=== PATIENT | female | born 1950 | race Caucasian/White ===

== ENCOUNTER 2020-03-01 22:03 | Emergency (ER) | payer MEDICARE, SELFPAY ==
[2020-03-01 22:02] VITALS: BP 186/90; PULSE 145; RESP 24; TEMP 37.2; O2SAT 97; BMI 23.9
--- NOTE | 2020-03-01 22:10 | ECG_ITS ---
APPROVED REPORT Exam: Resting ECG HR:140 bpm ECG Measurements Heart Rate 140 AXES QRSd 76 QRS -59 QT 298 T 89 QTc 454 <Conclusion> Atrial fibrillation with rapid ventricular response Left anterior fascicular block Abnormal ECG Electronically signed by : Anshul Govea, 03/02/2020 15:00:13
[2020-03-01 22:19] LABS: Basophils # 0.1 K/mm3 (0-0.2); Basophils % 0.9 % (0.1-2.0); Eosinophils # 0.2 K/mm3 (0.0-0.4); Eosinophils % 1.6 % (0.1-12.0); Hematocrit 33.7 % (37.0-47.0); Hemoglobin 11.7 g/dL (12.2-16.2); Lymphocytes # 1.8 K/mm3 (0.7-4.5); Lymphocytes % 17.2 % (10-50); Mean Corpuscular HGB Conc 34.7 g/dL (31.8-35.4); Mean Corpuscular Hemoglobin 33.4 pg (27.0-31.2); Mean Corpuscular Volume 96.4 fl (81-99); Mean Platelet Volume 9.4 fl (7.4-10.4); Monocytes # 0.4 K/mm3 (0.1-1.0); Neutrophils % 76.3 % (37.0-80.0); Platelet Count 214 K/mm3 (142-424); Red Cell Distribution Width 14.1 % (11.5-17.5); White Blood Count 10.5 K/mm3 (4.8-10.8)
[2020-03-01 22:20] LABS: Chloride 96 mmol/L (98-107)
[2020-03-01 22:21] LABS: Potassium 4.2 mmoL/L (3.5-5.1); Sodium 137 mmol/L (136-145)
[2020-03-01 22:23] LABS: Amylase 116 U/L (30-110)
[2020-03-01 22:24] LABS: Anion Gap 22.2 mEq/L (5-15); Blood Urea Nitrogen 39 mg/dl (7-17); Carbon Dioxide 23 mmol/L (22.0-30.0); Creatinine Clearance Estimated 7 mL/min (50-200); Estimated Glomerular Filt Rate 5 ml/min (>60); GFR (African American) 7 ML/MIN (>60); Glucose 224 mg/dl (74-100)
[2020-03-01 22:26] LABS: Lipase 177 U/L (23-300)
[2020-03-01 22:30] VITALS: BP 186/100; PULSE 120; RESP 18; O2SAT 97
[2020-03-01 22:36] LABS: Troponin I 0.05 ng/ml (0.00-0.034)
[2020-03-01 23:00] VITALS: BP 185/87; PULSE 134; RESP 18; O2SAT 95
[2020-03-01 23:32] LABS: NT Pro Brain Natriuretic Pep. 31800 pg/mL (0-125)
--- NOTE | 2020-03-01 23:44 | [facility].EDNVD ---
ED Disposition Clinical Impression: Nausea and vomiting in adult, ESRD (end stage renal disease) on dialysis A-fib Qualifiers: Atrial fibrillation type: persistent (not longstanding) Qualified Code(s): I48.19 - Other persistent atrial fibrillation Disposition: Home, Self-Care Condition on Discharge: Fair Instructions: DI for Nausea -- Adult Additional Instructions: resume meds and do dialysis in am Referrals: PCP,No [Primary Care Provider] - - Critical Care Critical Care Time: No Attestation: On 03/01/20, the high probability of a clinically significant, sudden or life threatening deterioration of the following system(s) required my full and direct attention, intervention and personal management. The time I documented below is in addition to time spent performing reported procedures but includes the following listed in this critical care notation. Medical Decision Making - Medical Records Medical records reviewed: Yes: I reviewed the patient's medical records. - Gio Inquiry Pt receiving controlled substance: No Vital Signs: 03/01/20 22:02 03/01/20 22:30 03/01/20 23:00 Temperature 98.9 F Temperature Source Oral Pulse Rate [Right Brachial] 145 H 120 H 134 H Respiratory Rate 24 18 18 Blood Pressure [Right Arm] 186/90 H 186/100 H 185/87 H Blood Pressure Mean [Right Arm] 122 128 119 Blood Pressure Source [Right Arm] Automatic Cuff Automatic Cuff Automatic Cuff Blood Pressure Position [Right Arm] Sitting Supine Supine 02 Sat by Pulse Oximetry 97 97 95 Oxygen Delivery Method Room Air Room Air Room Air - Lab Data Lab results reviewed: Yes: I reviewed the patient's lab results. Lab Results 03/01/20 21:45: WBC 10.5, RBC 3.50 L, Hgb 11.7 L, Hct 33.7 L, MCV 96.4, MCH 33.4 H, MCHC 34.7, RDW 14.1, Plt Count 214, MPV 9.4, Neut % (Auto) 76.3, Lymph % (Auto) 17.2, [place] % (Auto) 4.0, Eos % (Auto) 1.6, Baso % (Auto) 0.9, Neut # (Auto) 8.0 H, Lymph # (Auto) 1.8, [place] # (Auto) 0.4, Eos # (Auto) 0.2, Baso # (Auto) 0.1 03/01/20 21:45: Sodium 137, Potassium 4.2, Chloride 96 L, Carbon Dioxide 23, Anion Gap 22.2 H, BUN 39 H, Creatinine 7.50 H, Estimated Creat Clear 7, Estimated GFR 5 L*, Est GFR ( Amer) 7 L*, Glucose 224 H, Calcium 10.0, Troponin I 0.05 H, Amylase 116 H 03/01/20 21:45: Lipase 177 03/01/20 21:45: NT-Pro-B Natriuret Pep 31429 H Result diagrams: 03/01/20 21:45 03/01/20 21:45 Orders (Tests/Meds): ED MEDICATIONS Generic Name Dose Route Start Last Admin Trade Name Freq PRN Reason Stop Dose Admin Sodium Chloride 8 ml 03/01/20 23:46 Sodium Chloride 0.9% 10ml Vial IV 03/31/20 23:45 NEEDED PRN dilute pepcid Discontinued Medications Generic Name Dose Route Start Last Admin Trade Name Freq PRN Reason Stop Dose Admin Famotidine 20 mg 03/01/20 23:46 03/01/20 23:50 Pepcid 20mg/2ml Vial IV 03/01/20 23:47 20 mg ONCE ONE Administration Metoclopramide HCl 10 mg 03/01/20 23:46 03/01/20 23:50 Reglan 10mg/2ml Vial IVP 03/01/20 23:47 10 mg ONCE ONE Administration Ondansetron HCl 4 mg 03/01/20 23:46 03/01/20 23:50 Zofran 4mg/2ml Vial IV 03/01/20 23:47 4 mg ONCE ONE Administration ORDERS Category Date Time Status CT abdomen pelvis wo con Stat Cat Scan 03/02/20 00:01 Taken Troponin I Q3H Lab 03/02/20 01:15 Ordered Troponin I Q3H Lab 03/02/20 04:15 Ordered - CT Data CT Scan: Abdomen, Pelvis Time Received: 01:[address] Reviewed: Yes: I have viewed the radiologist's interpretation Preliminary Findings: Abnormal (see report ) - ECG Data Tracing #1 Arrhythmias present: afib Ischemic changes: non-specific ST-T wave changes Nausea/Vomiting/Diarrhea HPI - General Chief complaint: Nausea/Vomiting/Diarrhea Stated complaint: nausea/vomiting Time Seen by Provider: 03/01/20 22:20 Mode of Arrival: EMS Source of Information: Patient, Relative, EMS, Medical Record Limitations: No Limitations Description of Symptoms (Recalled
--- NOTE | 2020-03-02 00:01 | CT_ITS ---
PROCEDURE: CT ABDOMEN PELVIS WO CON CLINICAL INDICATION: belly pain Epigastric pain and bloating COMPARISON: No exams were available for comparison TECHNIQUE: Axial images obtained with sagittal and coronal reformats. All CT scans at the facility use one or more dose reduction, viz: automated exposure control, ma/kV adjustment per patient size (including targeted exams where dose is matched to indication, i.e. head), or iterative reconstruction technique. FINDINGS: LOWER THORAX: There is cardiomegaly with extensive coronary artery calcification and/or stents. Mitral valve annular calcification also noted. Calcification of the aortic valve also suspected but incompletely imaged. There are small bilateral pleural effusions with bibasilar atelectatic changes. There is mild thickening of the pericardium inferiorly consistent with small pericardial effusion ABDOMEN & PELVIS: Post cholecystectomy. The liver, spleen, adrenal glands, have an unremarkable appearance. The stomach appears thickened and could be due to nondistention or gastritis. There is ill definition of the superior aspect of the pancreatic head and portal area which may be due to the lack of IV and oral contrast and mild motion artifact. Mild pancreatitis would be a additional consideration. There is also mild thickening of the 2nd portion of the duodenum which could be due to duodenitis or adjacent inflammation from pancreatitis. Please correlate with laboratory values. There is bilateral renal atrophy left greater than right. There is moderate stranding of the perinephric renal fat on both sides right greater than left and greater along the inferior aspect of the pararenal space. There is a small umbilical hernia containing fat. No intestinal obstruction or free air. There is colonic diverticulosis. Increased soft tissue density is present in the left lower quadrant of the peritoneum anterior to the sigmoid colon with a small focus of calcification possibly due to prior inguinal hernia repair. There is a small amount fluid in the pelvis . The appendix is not clearly delineated. Prior hysterectomy. Multiple unopacified bowel loops in the abdomen or pelvis which could obscure or mimic pathology. If symptoms persist, consider repeat exam with IV and oral contrast. Mild superior endplate compression of L2 age indeterminate. There is diffuse vascular calcification. IMPRESSION: 1. Bilateral pleural effusions with bibasilar atelectasis with cardiomegaly and extensive coronary artery calcification as well as mitral valve and aortic valve calcification 2. Possible pancreatitis and or duodenitis along with gastric wall thickening which could be related to gastritis versus incomplete distension 3. There is a mild amount of ascites. 4. Colonic diverticulosis without diverticulitis. 5. Multiple unopacified bowel loops in the abdomen or pelvis which could obscure or mimic pathology. If symptoms persist, consider repeat exam with IV and oral contrast. Dictated b Han Guzman MD 03/02/2020 06:33 Han Guzman MD in [place] 03/02/2020 06:33
[2020-03-02 01:29] VITALS: BP 157/93; PULSE 130; RESP 18; TEMP 37.2; O2SAT 96
== END 2020-03-02 01:31 | disposition home or self-care (01) ==
PROVIDERS: Emergency Provider Emergency Medicine
DX: N18.6 End stage renal disease (principal); I48.19 Other persistent atrial fibrillation; E11.65 Type 2 diabetes mellitus with hyperglycemia; Z79.4 Long term (current) use of insulin; Z79.899 Other long term (current) drug therapy; R06.02 Shortness of breath
CPT/HCPCS: 74176; 80048; 82150; 83690; 83880; 84484; 85025; 93005; 96374; 96375; 99284; J2405